=== PATIENT | female | born 1945 | race Caucasian/White ===

== ENCOUNTER → 2019-05-04 | Outpatient (CLI) | payer OTHER ==
[~2019-05-04] MED LIST: AMARYL4 MG PO; BENAZEPRIL HCL20 MG PO; HYDROXYCHLOROQ200 M1 PO; MEDROLDOSEPACK PO; MELOXICAM7.5 MG PO; PEPCID40 MG PO
== END ==
LOC: M.RAD 12:45
DX: Z12.31 Encounter for screening mammogram for malignant neoplasm of breast (principal)

== ENCOUNTER → 2019-10-18 | Outpatient (CLI) | payer OTHER ==
--- NOTE | 2019-10-18 11:36 | 2DMMODE ---
[place] [address] 2 D/M-MODE ECHOCARDIOGRAM Name: SOURAV REED Room: [facility]#: [id number] Admission: 10/18/19 Attend Phys: Richar Mcleod DO Discharge: Date of : 45 Date of Service: 10/18/19 1135 Report #: [id number] THIS REPORT FOR: cc: Sujata Worthy Maggie M. DO Liston, Michael J. MD [facility] ~ APPROVED REPORT Study performed: 10/18/2019 09:50:14 EXAM: Comprehensive 2D, Doppler, and color-flow Echocardiogram Patient Location: Out-Patient BSA: 1.54 HR: 78 bpm BP: 112/60 mmHg Other Information Study Quality: Good Indications Murmur 2D Dimensions IVSd: 10.62 (7-11mm) LVOT Diam: 20.17 (18-24mm) LVDd: 42.82 mm PWd: 9.50 (7-11mm) Ascending Ao: 27.83 (22-36mm) LVDs: 22.76 (25-40mm) Aortic Root: 24.35 mm Volumes Left Atrial Volume (Systole) LA ESV Index: 16.50 mL/m2 Aortic Valve AoV Peak Filipe.: 1.61 m/s AO Peak Gr.: 10.41 mmHg LVOT Max P.83 mmHg AO Mean Gr.: 5.96 mmHg LVOT Mean P.50 mmHg LVOT Max V: 1.21 m/s AO V2 VTI: 27.04 cm LVOT Mean V: 0.71 m/s IRA (VTI): 2.34 cm2 LVOT V1 VTI: 19.83 cm Mitral Valve E/A Ratio: 0.57 [place] [address] 2 D/M-MODE ECHOCARDIOGRAM Name: SOURAV REED Room: [facility]#: [id number] Admission: 10/18/19 Attend Phys: Richar Mcleod DO Discharge: Date of : 45 Date of Service: 10/18/19 1135 Report #: [id number] MV Decel. Time: 188.55 ms MV E Max Filipe.: 0.55 m/s MV PHT: 54.68 ms MVA (PHT): 4.02 cm2 TDI E/Lateral E': 5.00 E/Medial E': 3.93 Medial E' Filipe.: 0.14 m/s Lateral E' Filipe.: 0.11 m/s Pulmonary Valve PV Peak Filipe.: 1.09 m/s PV Peak Gr.: 4.73 mmHg Tricuspid Valve RAP Estimate: 5.00 mmHg TR Peak Gr.: 29.71 mmHg RVSP: 34.71 mmHg PA Pressure: 34.71 mmHg Left Ventricle The left ventricle is normal size. There is normal LV segmental wall motion. There is normal left ventricular wall thickness. Left ventricular systolic function is vigorous. LVEF is 85%. Grade I - abnormal relaxation pattern. Right Ventricle The right ventricle is normal size. The right ventricular systolic function is normal. Atria The left atrium size is normal. The right atrium size is normal. Aortic Valve Aortic valve leaflets are mildly thickened. No aortic regurgitation is present. There is no aortic valvular stenosis. Mitral Valve The mitral valve is normal in structure. Trace mitral regurgitation. No evidence of mitral valve stenosis. Tricuspid Valve The tricuspid valve is normal in structure. Mild tricuspid regurgitation. The RVSP is 30-35 mmHg. Pulmonic Valve The pulmonary valve is normal in structure. [place] [address] 2 D/M-MODE ECHOCARDIOGRAM Name: SOURAV REED Room: [facility]#: [id number] Admission: 10/18/19 Attend Phys: Richar Mcleod DO Discharge: Date of : 45 Date of Service: 10/18/19 1135 Report #: [id number] valvular regurgitation. Great Vessels The aortic root is normal in size. IVC is normal in size and collapses >50% with inspiration. Pericardium There is no pericardial effusion. <Conclusion> The left ventricle is normal size. There is normal left ventricular wall thickness. Left ventricular systolic function is vigorous. LVEF is 85%. Grade I - abnormal relaxation pattern. Aortic valve leaflets are mildly thickened. There is no aortic valvular stenosis. Trace mitral regurgitation. Mild tricuspid regurgitation. The RVSP is 30-35 mmHg. IVC is normal in size and collapses >50% with inspiration. <ELECTRONICALLY SIGNED> By: Doyle Villegas MD, FACC 10/18/19 1135 1135 1135 Doyle Villegas MD, FACC /INF
== END ==
LOC: M.CRD 09:27
PROVIDERS: ATTEND Family Medicine
DX: I08.2 Rheumatic disorders of both aortic and tricuspid valves (principal); R01.1 Cardiac murmur, unspecified

== ENCOUNTER → 2020-04-06 | Outpatient (CLI) | payer OTHER | LOC: M.RAD 10:40 | PROVIDERS: ATTEND Family Medicine | DX: M81.0 Age-related osteoporosis without current pathological fracture (principal) ==

== ENCOUNTER → 2020-06-20 | Outpatient (CLI) | payer OTHER | LOC: M.MRI 13:59 | PROVIDERS: ATTEND Family Medicine | DX: M19.071 Primary osteoarthritis, right ankle and foot (principal); M65.271 Calcific tendinitis, right ankle and foot; M25.774 Osteophyte, right foot ==

== ENCOUNTER → 2020-09-26 | Outpatient (CLI) | payer OTHER | LOC: M.RAD 11:25 | PROVIDERS: ATTEND Family Medicine | DX: Z12.31 Encounter for screening mammogram for malignant neoplasm of breast (principal) ==